=== PATIENT | female | born 1995 | race Caucasian/White ===

== ENCOUNTER 2025-01-19 17:53 | Emergency (ER) | payer SELFPAY ==
[~2025-01-19] VITALS: Ht 165.1 cm; Wt 64.0 kg
[2025-01-19 18:00] VITALS: BP 124/66; PULSE 66; RESP 18; TEMP 37.1; O2SAT 100; O2SAT 96
== END 2025-01-19 20:16 | disposition left against medical advice (07) ==
LOC: ER 17:53
DX: M79.641 Pain in right hand (principal); Z53.21 Procedure and treatment not carried out due to patient leaving prior to being seen by health care provider
CPT/HCPCS: 73140